=== PATIENT | female | born 1975 | race Caucasian/White ===

== ENCOUNTER → 2016-11-21 | Outpatient (CLI) | payer BC ==
[2016-11-21 14:19] LABS: THYROID STIMULATING HORMONE 0.54 uIU/ml (0.34-5.60)
[2016-11-21 14:26] LABS: FREE THYROXIN (T4) 0.77 ng/dL (0.58-1.64)
== END | disposition home or self-care (01) ==
LOC: CLAB 12:23
PROVIDERS: Internal Medicine
DX: R79.89 Other specified abnormal findings of blood chemistry (principal)
CPT/HCPCS: 36415; 84439; 84443